=== PATIENT | female | born 1930 | race Caucasian/White ===

== ENCOUNTER 2019-08-24 14:19 | Inpatient (IN) | payer MEDICARE, BC ==
[2019-08-24] MEDS ORDERED: SODIUM CHLORIDE 0.9% 500 ML 500 ML IV STA (15:46)
--- NOTE | 2019-08-24 15:50 | ED ---
General Adult HPI - General Chief complaint: Weakness Stated complaint: right arm weakness/SOB Time Seen by Provider: 08/24/19 15:30 Source: patient, RN notes reviewed, old records reviewed Mode of arrival: ambulatory Limitations: altered mental status, physical limitation - History of Present Illness Initial comments: This is an 89-year-old female who is brought to the emergency department because she's not moving the right side. Cranial shortness of bathroom at about 5:30 and he thinks she was using her right side then but when he woke her up later she was not moving the right arm at all. She was able to ambulate she had no facial droop patient normally does not speak because of her severe dementia but they did not notice anything else different other than she does not move her right arm. There is no history of any trauma. Patient gives no history whatsoever because of her dementia. Family states he also feels so she's breathing a little more rapidly than normal. Patient has had no fevers been no vomiting or diarrhea. - Related Data Home Medications Medication Instructions Recorded Confirmed Apixaban [Eliquis] 2.5 mg PO DAILY 08/24/19 08/24/19 Cholecalciferol (Vitamin D3) 2,000 unit PO DAILY 08/24/19 08/24/19 [Vitamin D3] Enalapril [Vasotec] 10 mg PO BID 08/24/19 08/24/19 Metoprolol Tartrate [Lopressor] 25 mg PO HS 08/24/19 08/24/19 Metoprolol Tartrate [Lopressor] 50 mg PO QAM 08/24/19 08/24/19 Pravastatin Sodium [Pravachol] 20 mg PO HS 08/24/19 08/24/19 amLODIPine [Norvasc] 5 mg PO DAILY 08/24/19 08/24/19 Allergies Allergy/AdvReac Type Severity Reaction Status Date / Time No Known Allergies Allergy Verified 08/24/19 15:51 Review of Systems ROS Statement: Those systems with pertinent positive or pertinent negative responses have been documented in the HPI. ROS Other: All systems not noted in ROS Statement are negative. Past Medical History Past Medical History: Dementia, Hypertension History of Any Multi-Drug Resistant Organisms: None Reported Past Surgical History: Cholecystectomy, Hysterectomy, Orthopedic Surgery Additional Past Surgical History / Comment(s): hip Past Psychological History: No Psychological Hx Reported Smoking Status: Never smoker Past Alcohol Use History: None Reported Past Drug Use History: None Reported General Exam - General Exam Comments Initial Comments: GENERAL: Patient is well-developed and well-nourished. Patient is nontoxic and well- hydrated and is in no acute distress. ENT: Neck is soft and supple. No significant lymphadenopathy is noted. Oropharynx is clear. Moist mucous membranes. Neck has full range of motion without eliciting any pain. EYES: The sclera were anicteric and conjunctiva were pink and moist. Extraocular movements were intact and pupils were equal round and reactive to light. Eyelids were unremarkable. PULMONARY: Unlabored respirations. Good breath sounds bilaterally. No audible rales rh onchi or wheezing was noted. Patient is tachypneic CARDIOVASCULAR: Patient is tachycardic at about 110 beats a minute ABDOMEN: Soft and nontender with normal bowel sounds. No palpable organomegaly was noted. There is no palpable pulsatile mass. SKIN: Skin is clear with no lesions or rashes and otherwise unremarkable. NEUROLOGIC: Patient is alert and oriented 0. Chemistry states this is her baseline Cranial nerves II through XII are grossly intact. Motor and sensory are also intact. Patient has no facial droop but she does not speak normally so she was not answering my questions so I could not ascertain whether she had any slurred speech. MUSCULOSKELETAL: Normal extremities with adequate strength and full range of motion. No lower extremity swelling or edema. No calf tenderness. LYMPHATICS: No significant lymphadenopathy is noted PSYCHIATRIC: Unable to evaluate Limitations: altered mental status, physical limitation Course Vital Signs 08/24/19 14:44 Temperature 98.2 F Pulse Rate 116 H Respiratory 24 Rate Blood Pressure 134/67 O2 Sat by Pulse 98 Oximetry Medical Decision Making - Medical Decision Making EKG shows sinus tachycardia at 116 bpm AR interval 290 QRS is 80 QT interval 306 QTC is 425. Patient's EKG shows no ST segment elevation or depression or T wave abnormalities are noted. Chest x-ray shows a possible right lower lobe pneumonia. Computed tomography scan was done because an elevated d-dimer. It showed a thoracic a sending aortic aneurysm with dissection. They did not mention on the CAT scan any pneumonia. I spoke with the the daughter and granddaughter about the thoracic dissection and all 3 were in agreement that they wanted no intervention for the dissection. I talked with Dr. de oliveira agreed to admit the patient admitted the patient wrote admitting orders. - Lab Data Result diagrams: 08/24/19 15:30 08/24/19 15:30 Lab Results 08/24/19 08/24/19 08/24/19 Range/Units 15:30 15:30 15:30 WBC 9.5 (3.8-10.6) k/uL RBC 4.91 (3.80-5.40) m/uL Hgb 15.0 (11.4-16.0) gm/dL Hct 45.2 (34.0-46.0) % MCV 92.2 (80.0-100.0) fL MCH 30.6 (25.0-35.0) pg MCHC 33.2 (31.0-37.0) g/dL RDW 13.1 (11.5-15.5) % Plt Count 215 (150-450) k/uL Neutrophils % 86 % Lymphocytes % 9 % Monocytes % 4 % Eosinophils % 0 % Basophils % 1 % Neutrophils # 8.1 H (1.3-7.7) k/uL Lymphocytes # 0.8 L (1.0-4.8) k/uL Monocytes # 0.4 (0-1.0) k/uL Eosinophils # 0.0 (0-0.7) k/uL Basophils # 0.1 (0-0.2) k/uL PT 11.2 (9.0-12.0) sec INR 1.1 (<1.2) APTT 26.3 (22.0-30.0) sec D-Dimer 1.07 H (<0.60) mg/L FEU Sodium 134 L (137-145) mmol/L Potassium 6.0 H (3.5-5.1) mmol/L Chloride 101 (98-107) mmol/L Carbon Dioxide 21 L (22-30) mmol/L Anion Gap 12 mmol/L BUN 18 H (7-17) mg/dL Creatinine 0.58 (0.52-1.04) mg/dL Est GFR (CKD-EPI)AfAm >90 (>60 ml/min/1.73 sqM) Est GFR (CKD-EPI)NonAf 83 (>60 ml/min/1.73 sqM) Glucose 191 H (74-99) mg/dL Plasma Lactic Acid Willy (0.7-2.0) mmol/L Calcium 9.4 (8.4-10.2) mg/dL Total Bilirubin 1.3 (0.2-1.3) mg/dL AST 68 H (14-36) U/L ALT 27 (9-52) U/L Alkaline Phosphatase 69 (38-126) U/L Troponin I (0.000-0.034) ng/mL Total Protein 7.8 (6.3-8.2) g/dL Albumin 4.1 (3.5-5.0) g/dL 08/24/19 08/24/19 Range/Units 15:30 15:30 WBC (3.8-10.6) k/uL RBC (3.80-5.40) m/uL Hgb (11.4-16.0) gm/dL Hct (34.0-46.0) % MCV (80.0-100.0) fL MCH (25.0-35.0) pg MCHC (31.0-37.0) g/dL RDW (11.5-15.5) % Plt Count (150-450) k/uL Neutrophils % % Lymphocytes % % Monocytes % % Eosinophils % % Basophils % % Neutrophils # (1.3-7.7) k/uL Lymphocytes # (1.0-4.8) k/uL Monocytes # (0-1.0) k/uL Eosinophils # (0-0.7) k/uL Basophils # (0-0.2) k/uL PT (9.0-12.0) sec INR (<1.2) APTT (22.0-30.0) sec D-Dimer (<0.60) mg/L FEU Sodium (137-145) mmol/L Potassium (3.5-5.1) mmol/L Chloride (98-107) mmol/L Carbon Dioxide (22-30) mmol/L Anion Gap mmol/L BUN (7-17) mg/dL Creatinine (0.52-1.04) mg/dL Est GFR (CKD-EPI)AfAm (>60 ml/min/1.73 sqM) Est GFR (CKD-EPI)NonAf (>60 ml/min/1.73 sqM) Glucose (74-99) mg/dL Plasma Lactic Acid Willy 3.3 H* (0.7-2.0) mmol/L Calcium (8.4-10.2) mg/dL Total Bilirubin (0.2-1.3) mg/dL AST (14-36) U/L ALT (9-52) U/L Alkaline Phosphatase (38-126) U/L Troponin I <0.012 (0.000-0.034) ng/mL Total Protein (6.3-8.2) g/dL Albumin (3.5-5.0) g/dL Disposition Clinical Impression: Aortic dissection, CVA (cerebral vascular accident), Hyperkalemia, Dehydration, Pneumonia Disposition: ADMITTED IP TO THIS HOSP Referrals: Bev Calabrese MD [Primary Care Provider] - 1-2 days Time of Disposition: 18:26
[2019-08-24 16:00] LABS: Basophils # (A) 0.1 k/uL (0-0.2); Basophils % (A) 1 %; Eosinophils % (A) 0 %; HCT 45.2 % (34.0-46.0); Lymphocytes # (A) 0.8 k/uL (1.0-4.8); Lymphocytes % (A) 9 %; MCH 30.6 pg (25.0-35.0); MCHC 33.2 g/dL (31.0-37.0); MCV 92.2 fL (80.0-100.0); Mean Platelet Volume 6.8; Monocytes # (A) 0.4 k/uL (0-1.0); Monocytes % (A) 4 %; Neutrophils # (A) 8.1 k/uL (1.3-7.7); Neutrophils % (A) 86 %; Platelet Count 215 k/uL (150-450); RBC 4.91 m/uL (3.80-5.40); RDW 13.1 % (11.5-15.5); WBC 9.5 k/uL (3.8-10.6)
[2019-08-24 16:09] LABS: ALT 27 U/L (9-52); AST 68 U/L (14-36); African American GFR (CKD) >90 (>60 ml/min/1.73 sqM); Albumin 4.1 g/dL (3.5-5.0); Alkaline Phosphatase 69 U/L (38-126); Anion Gap 12 mmol/L; Blood Urea Nitrogen 18 mg/dL (7-17); Calcium 9.4 mg/dL (8.4-10.2); Carbon Dioxide 21 mmol/L (22-30); Chloride 101 mmol/L (98-107); Glucose 191 mg/dL (74-99); Sodium 134 mmol/L (137-145); Total Bilirubin 1.3 mg/dL (0.2-1.3); Total Protein 7.8 g/dL (6.3-8.2)
[2019-08-24 16:24] LABS: INR 1.1 (<1.2); Partial Thromboplastin Time 26.3 sec (22.0-30.0); Prothrombin Time 11.2 sec (9.0-12.0)
[2019-08-24 16:25] LABS: D-Dimer 1.07 mg/L FEU (<0.60)
--- NOTE | 2019-08-24 16:26 | CT ---
EXAMINATION TYPE: CT brain wo con for TPA DATE OF EXAM: 08/24/2019 COMPARISON: None HISTORY: Right arm weakness. CT DLP: 1129.[address] of the brain was performed. The ventricles, basal cisterns and sulci overlying the cerebral convexities demonstrate moderate enla rgement. There is no evidence for intracranial hemorrhage or sulcal effacement. There is decreased attenuation about the periventricular white matter and deep white matter of both c erebral hemispheres, compatible with chronic small vessel ischemia. Differential diagnosis does inclu de demyelination. No mass effects are seen.No midline shift. Osseous calvarium is intact. If symptoms persist consider MRI. IMPRESSION: 1. Age related atrophic and chronic small vessel ischemic change without acute intracranial process s een at this time.
--- NOTE | 2019-08-24 16:56 | XR ---
EXAMINATION TYPE: XR chest 2V DATE OF EXAM: 08/24/2019 COMPARISON: 09/28/2013 HISTORY: Shortness of breath TECHNIQUE: Frontal and lateral views of the chest are obtained. FINDINGS: Scattered senescent parenchymal changes noted. Hyperinflation compatible with COPD. Patchy infiltrate right lower lobe with small effusion noted. Heart size is stable. Mediastinal structures are stable and grossly unremarkable. No evidence for hilar prominence. Degenerative changes dorsal spine. IMPRESSION: 1. Patchy infiltrate right lower lobe with small effusion noted. Hyperinflation and COPD.
--- NOTE | 2019-08-24 16:58 | XR ---
EXAMINATION TYPE: XR humerus RT DATE OF EXAM: 08/24/2019 CLINICAL HISTORY: pain COMPARISON: NONE TECHNIQUE: Frontal and lateral images of the right humerus are obtained. FINDINGS: There is no acute fracture/dislocation evident. The joint spaces appear within normal limi ts. The overlying soft tissue appears unremarkable. IMPRESSION: There is no acute fracture or dislocation.ICD 10 NO FRACTURE, INITIAL EVALUATION
[2019-08-24] MEDS ORDERED: cefTRIAXone IN SWFI 1,000 MG/10 ML SYRINGE IVP STA (17:01)
[2019-08-24] MEDS ORDERED: SODIUM CHLORIDE 0.9% 1,000 ML IV ONE ×2 (17:01→18:27)
[2019-08-24] MEDS ORDERED: SODIUM CHLORIDE 0.9% 500 ML 500 ML IV ONE (17:01)
[2019-08-24] MEDS ORDERED: DEXTROSE 50% SYRINGE 50 ML IVP STA (17:02)
[2019-08-24] MEDS ORDERED: SODIUM BICARB 8.4% 50 ML SYR (1 MEQ/ML) IV STA (17:02)
[2019-08-24] MEDS ORDERED: CALCIUM CHLORIDE 100 MG/ML 10 ML SYRINGE IVP STA (17:02)
[2019-08-24] MEDS ORDERED: INSULIN REGULAR 100 UNIT/ML VIAL IV ONE (17:02)
[2019-08-24] MEDS ORDERED: SODIUM POLYSTYRENE SULFONATE 15 GM/60 ML BOTTLE PO STA (17:03)
--- NOTE | 2019-08-24 17:49 | CT ---
CT CHEST FOR PULMONARY EMBOLISM. EXAMINATION TYPE: CT chest angio for PE DATE OF EXAM: 08/24/2019 INDICATION: SOB CT DLP: 224 mGycm, Automated exposure control for dose reduction was used. CONTRAST: Patient injected with 80 mL of Isovue 370. COMPARISON: None TECHNIQUE: CT of the chest is performed on a spiral scan at 2 mm thick sections. Study is performed with intravenous contrast timed for evaluation for pulmonary embolism. This will limit additional po rtions of the evaluation. 3-D MIP images reconstructed by the technologist are reviewed on the compu ter in the coronal and sagittal planes. FINDINGS: No persistent filling defects are evident to suggest an acute pulmonary embolism. There is a dissection that begins at the aortic root and extends to the mid ascending thoracic aorta. The ascending thoracic aorta is aneurysmal in this continues into the proximal innominate artery and left carotid artery. The common carotid arteries are tortuous. There is some aneurysmal dilatation of the posterior aortic arch with a transverse dimension of 3.9 cm. The descending thoracic aorta taper s to the diaphragm. The ascending aorta diameter at the level of the main pulmonary artery is 5.2 cm. The main pulmonary artery diameter at the bifurcation is 2.2 cm. No suspicious mediastinal adenopathy is evident. There is a small right and minimal left pleural effusion. Some compressive atelectasis is adjacent to the right pleural effusion. Limited CT section through the upper abdomen are unremarkable. IMPRESSIONS: 1. No acute pulmonary embolism. 2. Ascending thoracic aortic aneurysm. There is also aneurysmal dilatation of the posterior aortic ar ch and proximal descending aorta. 3. Ascending thoracic aortic dissection beginning at the aortic root and terminating within the mid l ateral ascending aorta. 4. Report was called to Dr. Arnold by Dr. Oates by telephone [id number] hours 08/24/2019
[2019-08-24] MEDS ORDERED: MORPHINE SULFATE 2 MG/ML SYRINGE IVP STA (18:04)
[2019-08-24] MEDS ORDERED: AZITHROMYCIN 500 MG TAB PO STA (18:32)
[2019-08-24] MEDS ORDERED: AZITHROMYCIN 500 MG in SODIUM CHLORIDE 0.9% 250 ML IVPB STA (18:32)
[2019-08-24 19:26] LABS: Appearance,Urine Cloudy (Clear); Bilirubin,Urine Negative (Negative); Blood,Urine Small (Negative); Color,Urine Light Yellow; Glucose,Urine (UA) 3+ (Negative); Ketones,Urine Negative (Negative); Leukocyte Esterase,Urine Large (Negative); Mucus,Urine Rare /hpf; Nitrite,Urine Negative (Negative); Protein,Urine Negative (Negative); RBC,Urine 31 /hpf (0-5); Specific Gravity,Urine 1.025 (1.001-1.035); Urobilinogen,Urine <2.0 mg/dL (<2.0)
[2019-08-24 21:13] LABS: Glucose,Whole Blood 128 mg/dL (75-99)
[2019-08-25 05:07] LABS: African American GFR (CKD) >90 (>60 ml/min/1.73 sqM); Anion Gap 4 mmol/L; Blood Urea Nitrogen 15 mg/dL (7-17); Calcium 8.7 mg/dL (8.4-10.2); Carbon Dioxide 28 mmol/L (22-30); Chloride 105 mmol/L (98-107); Glucose 96 mg/dL (74-99); Potassium 3.3 mmol/L (3.5-5.1); Sodium 137 mmol/L (137-145)
[2019-08-25 10:53] VITALS: BMI 18.8
--- NOTE | 2019-08-25 19:29 | P.HPIM ---
History of Present Illness H&P Date: 08/25/19 Chief Complaint: Not moving right arm History of presenting complaint: This is a 89-year-old patient of Dr. Loren Calabrese. Patient lives with her . Daughter lives very close by. Patient has very advanced dementia. Does not speak. Able to walk. Able to feed herself. Patient had gone to the bathroom around late afternoon yesterday. After that the found that the right arm was not moving. It was weak. Patient is brought down to the ER. Computed tomography scan of the brain was unremarkable. Patient had a computed tomography scan of the chest in the ER that showed dissection of the ascending aorta. Dr. Arnold the ER physicians. 2 patient's daughter and granddaughter and her . They wanted no further evaluation except keep the patient comf ortable. Patient admitted to the telemetry ICU as overflow. Patient has started moving her right arm. Appears otherwise comfortable. Patient ate about 25% for breakfast this morning. Laying in bed. Comfortable. In the ER patient is also found to be hyperkalemic and was given his medications for the same. Potassium Down. Also Found to Have UTI Which Is Put on IV Ceftriaxone Admitting review of systems cannot be done as patient nonverbal. Supportive history from the family the bedside and the hospital staff. Past medical history to include: Atrial fibrillation, dementia, hypertension Social history: Lives at home with her . No smoking or alcohol. Ambulatory. Can feed herself. Doesn't really follow commands. Family history: Patient unable to state Physical examination: VITAL SIGNS: 98.2, 116, 24, 134/67, 98% room air GENERAL: BMI 18.9, laying in bed, very comfortable. EYES: Pupils equal. Conjunctiva normal. HEENT: External appearance of nose and ears normal, oral cavity grossly normal. NECK: JVD not raised; masses not palpable. HEART: First and second heart sounds are normal; no edema. LUNGS: Respiratory rate normal; clear to auscultation. ABDOMEN: Soft, nontender, liver spleen not palpable, no masses palpable. PSYCH: Patient nonverbal, unable to assessl. NEUROLOGICAL: [Cranial nerves grossly intact; no facial asymmetry, moving all 4 limbs LYMPHATICS: No lymph nodes palpable in the axilla and neck INVESTIGATIONS, reviewed in the clinical context: White count 9.5 hemoglobin 15 platelets 215 potassium 6.18 creatinine 0.58 Lactic acid 3.3, 3.3 Computed tomography scan the brain-age related atrophic changes with chronic small vessel ischemic changes Assessment: -Acute ascending aorta dissection. Patient's family does not want any further intervention. Patient's no code. 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 -Lactic acidosis type II, not from sepsis Plan: -Patient initially admitted to ICU. For close monitoring. Per patient's family no icterus of intervention. Wanted to be kept a close eye on. Patient started to be fed. Blood pressures running low. We'll hold off antihypertensives. UTIs being treated with IV ceftriaxone. We'll give Lovenox for DVT prophylaxis. Slight patient eventually returned home where she has good support. - Past Medical History Past Medical History: Atrial Fibrillation, Dementia, Hypertension History of Any Multi-Drug Resistant Organisms: None Reported Past Surgical History: Appendectomy, Cholecystectomy, Hysterectomy, Orthopedic Surgery Additional Past Surgical History / Comment(s): hip replacement sep 2013 Past Psychological History: No Psychological Hx Reported Smoking Status: Never smoker Past Alcohol Use History: None Reported Past Drug Use History: None Reported Medications and Allergies Home Medications Medication Instructions Recorded Confirmed Type Apixaban [Eliquis] 2.5 mg PO DAILY 08/24/19 08/24/19 History Cholecalciferol (Vitamin D3) 2,000 unit PO DAILY 08/24/19 08/24/19 History [Vitamin D3] Enalapril [Vasotec] 10 mg PO BID 08/24/19 08/24/19 History Metoprolol Tartrate [Lopressor] 25 mg PO HS 08/24/19 08/24/19 History Metoprolol Tartrate [Lopressor] 50 mg PO QAM 08/24/19 08/24/19 History Pravastatin Sodium [Pravachol] 20 mg PO HS 08/24/19 08/24/19 History amLODIPine [Norvasc] 5 mg PO DAILY 08/24/19 08/24/19 History Allergies Allergy/AdvReac Type Severity Reaction Status Date / Time No Known Allergies Allergy Verified 08/24/19 15:51 Physical Exam Vitals: Vital Signs Temp Pulse Resp BP Pulse Ox 08/25/19 09:00 95 95 08/25/19 08:00 97.7 F 73 12 119/65 94 L 08/25/19 07:00 60 12 96 08/25/19 06:00 63 22 95 08/25/19 05:00 59 L 16 93 L 08/25/19 04:00 98.5 F 66 16 96/55 97 08/25/19 00:00 97.9 F 80 16 111/43 98 08/24/19 20:54 97.8 F 93 20 96 08/24/19 20:30 98.2 F 78 24 122/77 98 08/24/19 20:00 82 16 127/88 98 08/24/19 19:30 85 23 108/72 95 08/24/19 19:00 81 23 110/61 98 08/24/19 18:30 79 23 141/90 98 08/24/19 18:00 81 22 113/85 98 08/24/19 17:30 82 23 119/78 98 08/24/19 17:00 79 23 118/78 98 08/24/19 16:30 78 24 115/82 98 08/24/19 16:15 81 24 116/80 98 08/24/19 16:00 82 24 121/87 96 08/24/19 15:45 82 24 121/86 98 08/24/19 15:30 84 22 120/89 98 08/24/19 15:15 82 24 119/87 98 08/24/19 15:00 86 23 118/82 98 08/24/19 14:44 98.2 F 116 H 24 134/67 98 Intake and Output 08/24/19 08/25/19 08/25/19 22:59 06:59 14:59 Other: # Voids 0 1 Weight 43.8 kg 43.8 kg Results CBC & Chem 7: 08/24/19 15:30 08/25/19 04:41 Labs: Abnormal Lab Results - Last 24 Hours (Table) 08/24/19 08/24/19 08/24/19 Range/Units 15:30 15:30 15:30 Neutrophils # 8.1 H (1.3-7.7) k/uL Lymphocytes # 0.8 L (1.0-4.8) k/uL D-Dimer 1.07 H (<0.60) mg/L FEU Sodium 134 L (137-145) mmol/L Potassium 6.0 H (3.5-5.1) mmol/L Carbon Dioxide 21 L (22-30) mmol/L BUN 18 H (7-17) mg/dL Glucose 191 H (74-99) mg/dL POC Glucose (mg/dL) (75-99) mg/dL Plasma Lactic Acid Willy (0.7-2.0) mmol/L AST 68 H (14-36) U/L Urine Appearance (Clear) Urine Glucose (UA) (Negative) Urine Blood (Negative) Ur Leukocyte Esterase (Negative) Urine RBC (0-5) /hpf Urine WBC (0-5) /hpf Urine WBC Clumps (None) /hpf Urine Mucus (None) /hpf 08/24/19 08/24/19 08/24/19 Range/Units 15:30 19:11 19:41 Neutrophils # (1.3-7.7) k/uL Lymphocytes # (1.0-4.8) k/uL D-Dimer (<0.60) mg/L FEU Sodium (137-145) mmol/L Potassium (3.5-5.1) mmol/L Carbon Dioxide (22-30) mmol/L BUN (7-17) mg/dL Glucose (74-99) mg/dL POC Glucose (mg/dL) (75-99) mg/dL Plasma Lactic Acid Willy 3.3 H* 3.3 H* (0.7-2.0) mmol/L AST (14-36) U/L Urine Appearance Cloudy H (Clear) Urine Glucose (UA) 3+ H (Negative) Urine Blood Small H (Negative) Ur Leukocyte Esterase Large H (Negative) Urine RBC 31 H (0-5) /hpf Urine WBC >182 H (0-5) /hpf Urine WBC Clumps Few H (None) /hpf Urine Mucus Rare H (None) /hpf 08/24/19 08/24/19 08/25/19 Range/Units 21:02 23:51 04:41 Neutrophils # (1.3-7.7) k/uL Lymphocytes # (1.0-4.8) k/uL D-Dimer (<0.60) mg/L FEU Sodium (137-145) mmol/L Potassium 3.3 L 3.3 L (3.5-5.1) mmol/L Carbon Dioxide (22-30) mmol/L BUN (7-17) mg/dL Glucose (74-99) mg/dL POC Glucose (mg/dL) 128 H (75-99) mg/dL Plasma Lactic Acid Willy (0.7-2.0) mmol/L AST (14-36) U/L Urine Appearance (Clear) Urine Glucose (UA) (Negative) Urine Blood (Negative) Ur Leukocyte Esterase (Negative) Urine RBC (0-5) /hpf Urine WBC (0-5) /hpf Urine WBC Clumps (None) /hpf Urine Mucus (None) /hpf Microbiology - Last 24 Hours (Table) 08/24/19 19:11 Urine Culture - Preliminary Urine,Voided Thrombosis Risk Factor Assmnt - Choose All That Apply Any of the Below Risk Factors Present?: No Other Risk Factors: Yes Each Risk Factor Represents 2 Points: Age 61-74 years Other congenital or acquired thrombophilia - If yes, enter type in comment: No Thrombosis Risk Factor Assessment Total Risk Factor Score: 2 Thrombosis Risk Factor Assessment Level: Low Risk
[2019-08-25] MEDS: PRAVASTATIN SODIUM 20 MG TAB PO SCH ×2 (20:44→20:50)
[2019-08-25] MEDS: APIXABAN 2.5 MG TABLET PO SCH ×2 (20:44→20:49)
--- NOTE | 2019-08-25 20:51 | P.CNNES ---
History of Present Illness Consult date: 08/25/19 Reason for Consult: Concern for stroke Chief complaint: RUE weakness and SOB History of Present Illness: HISTORY OF PRESENT ILLNESS: Thank you for allowing me to evaluate Ms. Adia Lucia. Ms. 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 and granddaughter at bedside. Daughter would be able to provide additional information. Patient with significant dementia, family decided on no surgery for the thoracic aneurysm. Patient denies any pain at the time of eval, no headache. PAST MEDICAL HISTORY: Dementia, HTN PAST SURGICAL HISTORY: Cholecystectomy, hysterectomy, hip surgyer HOME MEDICATIONS: Metoprolol, eliquis, Amlodipine, Pravastatin, Enalapril, Vitamin D ALLERGIES: NKDA SOCIAL HISTORY: Never smoker. REVIEW OF SYSTEMS: The 14 systems are reviewed and no additional points are identified compared to the review of systems documented history and physical PHYSICAL EXAMINATION: VITAL SIGNS: T 98.5 HR 66 RR 16 BP 96/55 O2 sat 97% on RA GEN.: NAD, granddaughter states patient only says "yes" all the time. HEENT: NCAT, sclera without icterus NECK: Supple SKIN AND EXTREMITIES: Warm to touch, no edema NEURO: MENTAL STATUS: Patient alert but says "yes" to all questions. CRANIAL NERVES II THROUGH XII: II: Pupils are equal and reactive to light symmetrically. Blinks to threat bilaterally. III, IV, : No ptosis. Tracks appropriately VII. No clear facial asymmetry. XII: Tongue midline without fasc iculation or atrophy. MOTOR: Normal bulk/tone. No pronator drift or tremor. Moves all 4 extremities spontaneously against gravity, possibly weaker R arm than L arm SENSORY: Grimaces to noxious stimuli in all 4 extremities REFLEXES: 2+ throughout. Toes are downgoing. COORDINATION/GAIT: Deferred DIAGNOSTIC TESTING: LABORATORY: WBC 9.5 Hgb 15.0 Platelet 215 PT 11.2 INR 1.1 Na 134 K 6.0 Cl 101 CO2 21 BUN 18 Cr 0.58 Glucose 191 Lactic acid 3.3 AST 68 ALT 27 AlkPhos 69 uninalysis large leukesterase, neg nitrite, >182 WBCs IMAGING: CT Head w/o contrast 08/24/19: Age-related atrophic and chronic small vessel ischemic change without acute intracranial process seen at this time. 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 Patient had an episode of complete RUE limpness, which has since resolved. Need to discuss with daughter to find out why patient is on Eliquis, but discussed with and granddaughter at bedside that we could further pursue stroke work-up with MRI brain w/o contrast, vessel imaging and TTE, but the work-up would not change control coordinator as patient already on anticoagulation. Will check labs: TSH, A1C, FLP. Will touch base with daughter tomorrow about family's decision. Neurology will continue to follow. Past Medical History Past Medical History: Atrial Fibrillation, Dementia, Hypertension History of Any Multi-Drug Resistant Organisms: None Reported Past Surgical History: Appendectomy, Cholecystectomy, Hysterectomy, Orthopedic Surgery Additional Past Surgical History / Comment(s): hip replacement sep 2013 Past Psychological History: No Psychological Hx Reported Smoking Status: Never smoker Past Alcohol Use History: None Reported Past Drug Use History: None Reported Medications and Allergies Home Medications Medication Instructions Recorded Confirmed Type Apixaban [Eliquis] 2.5 mg PO DAILY 08/24/19 08/24/19 History Cholecalciferol (Vitamin D3) 2,000 unit PO DAILY 08/24/19 08/24/19 History [Vitamin D3] Enalapril [Vasotec] 10 mg PO BID 08/24/19 08/24/19 History Metoprolol Tartrate [Lopressor] 25 mg PO HS 08/24/19 08/24/19 History Metoprolol Tartrate [Lopressor] 50 mg PO QAM 08/24/19 08/24/19 History Pravastatin Sodium [Pravachol] 20 mg PO HS 08/24/19 08/24/19 History amLODIPine [Norvasc] 5 mg PO DAILY 08/24/19 08/24/19 History Allergies Allergy/AdvReac Type Severity Reaction Status Date / Time No Known Allergies Allergy Verified 08/24/19 15:51 Physical Examination - Vital Signs Vital Signs: Vital Signs Temp Pulse Resp BP Pulse Ox 08/25/19 04:00 98.5 F 66 16 96/55 97 08/25/19 00:00 97.9 F 80 16 111/43 98 08/24/19 20:54 97.8 F 93 20 96 08/24/19 20:30 98.2 F 78 24 122/77 98 08/24/19 20:00 82 16 127/88 98 08/24/19 19:30 85 23 108/72 95 08/24/19 19:00 81 23 110/61 98 08/24/19 18:30 79 23 141/90 98 08/24/19 18:00 81 22 113/85 98 08/24/19 17:30 82 23 119/78 98 08/24/19 17:00 79 23 118/78 98 08/24/19 16:30 78 24 115/82 98 08/24/19 16:15 81 24 116/80 98 08/24/19 16:00 82 24 121/87 96 08/24/19 15:45 82 24 121/86 98 08/24/19 15:30 84 22 120/89 98 08/24/19 15:15 82 24 119/87 98 08/24/19 15:00 86 23 118/82 98 08/24/19 14:44 98.2 F 116 H 24 134/67 98 Intake and Output 08/24/19 08/25/19 08/25/19 22:59 06:59 14:59 Other: # Voids 0 1 Weight 43.8 kg Results - Laboratory Findings CBC and BMP: 08/24/19 15:30 08/25/19 04:41 Abnormal Lab Findings: Abnormal Labs 08/24/19 08/24/19 08/24/19 15:30 15:30 15:30 Neutrophils # 8.1 H Lymphocytes # 0.8 L D-Dimer 1.07 H Sodium 134 L Potassium 6.0 H Carbon Dioxide 21 L BUN 18 H Glucose 191 H POC Glucose (mg/dL) Plasma Lactic Acid Willy AST 68 H Urine Appearance Urine Glucose (UA) Urine Blood Ur Leukocyte Esterase Urine RBC Urine WBC Urine WBC Clumps Urine Mucus 08/24/19 08/24/19 08/24/19 15:30 19:11 19:41 Neutrophils # Lymphocytes # D-Dimer Sodium Potassium Carbon Dioxide BUN Glucose POC Glucose (mg/dL) Plasma Lactic Acid Willy 3.3 H* 3.3 H* AST Urine Appearance Cloudy H Urine Glucose (UA) 3+ H Urine Blood Small H Ur Leukocyte Esterase Large H Urine RBC 31 H Urine WBC >182 H Urine WBC Clumps Few H Urine Mucus Rare H 08/24/19 08/24/19 08/25/19 21:02 23:51 04:41 Neutrophils # Lymphocytes # D-Dimer Sodium Potassium 3.3 L 3.3 L Carbon Dioxide BUN Glucose POC Glucose (mg/dL) 128 H Plasma Lactic Acid Willy AST Urine Appearance Urine Glucose (UA) Urine Blood Ur Leukocyte Esterase Urine RBC Urine WBC Urine WBC Clumps Urine Mucus
[2019-08-25] MEDS ORDERED: LISINOPRIL 20 MG TAB PO SCH (21:00)
[2019-08-25] MEDS ORDERED: METOPROLOL TARTRATE 25 MG TAB PO SCH (21:00)
[2019-08-26 08:30] LABS: African American GFR (CKD) >90 (>60 ml/min/1.73 sqM); Anion Gap 9 mmol/L; Blood Urea Nitrogen 8 mg/dL (7-17); Calcium 8.1 mg/dL (8.4-10.2); Carbon Dioxide 24 mmol/L (22-30); Chloride 103 mmol/L (98-107); Glucose 100 mg/dL (74-99); Sodium 136 mmol/L (137-145)
[2019-08-26 08:35] LABS: Potassium 2.7 mmol/L (3.5-5.1)
[2019-08-26] MEDS ORDERED: METOPROLOL TARTRATE 50 MG TAB PO SCH (09:00)
[2019-08-26] MEDS ORDERED: amLODIPine 5 MG TAB PO SCH (09:00)
[2019-08-26] MEDS ORDERED: CHOLECALCIFEROL 1,000 UNIT TAB PO SCH (09:00)
[2019-08-26 10:24] VITALS: BP 154/74; PULSE 140; RESP 20; TEMP 97.8
--- NOTE | 2019-08-26 11:41 | P.PN ---
Progress Note - Text Progress Note Date: 08/26/19 SUBJECTIVE/INTERVAL EVENTS: No acute overnight events. Patient doing well although patient not wanting take her medications. Patient's huband, granddaughter at bedside along with daughter over the phone. Decision made to place patient on hospice. PHYSICAL EXAMINATION: VITAL SIGNS: T 97.8 HR 140 RR 20 BP 154/74 O2 sat 94% on RA GEN.: NAD, granddaughter states patient only says "yes" all the time. HEENT: NCAT, sclera without icterus NECK: Supple SKIN AND EXTREMITIES: Warm to touch, no edema NEURO: MENTAL STATUS: Patient alert but says "yes" to all questions. CRANIAL NERVES II THROUGH XII: II: Pupils are equal and reactive to light symmetrically. Blinks to threat bilaterally. III, IV, : No ptosis. Tracks appropriately VII. No clear facial asymmetry. XII: Tongue midline without fasciculation or atrophy. MOTOR: Normal bulk/tone. No pronator drift or tremor. Moves all 4 extremities spontaneously against gravity, possibly weaker R arm than L arm SENSORY: Grimaces to noxious stimuli in all 4 extremities REFLEXES: 2+ throughout. Toes are downgoing. COORDINATION/GAIT: Deferred DIAGNOSTIC TESTING: LABORATORY: WBC 9.5 Hgb 15.0 Platelet 215 PT 11.2 INR 1.1 Na 134 K 6.0 Cl 101 CO2 21 BUN 18 Cr 0.58 Glucose 191 Lactic acid 3.3 AST 68 ALT 27 AlkPhos 69 uninalysis large leukesterase, neg nitrite, >182 WBCs TSH 3.490 Total cholesterol 144 LDL 84 HDL 47 TG 65 IMAGING: CT Head w/o contrast 08/24/19: Age-related atrophic and chronic small vessel ischemic change without acute intracranial process seen at this time. 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 Patient had an episode of complete RUE limpness, which has since resolved. Need to discuss with daughter to find out why patient is on Eliquis, but discussed with and granddaughter at bedside that we could further pursue stroke work-up with MRI brain w/o contrast, vessel imaging and TTE, but the work-up would not professor of sport management as patient already on anticoagulation. Patient's family will soon decide on placing patient on home hospice. Neurology will sign off at this time. Neurology is not available over the weekend in-house. However, feel free to [employer] message me over the weekend if you have any questions or concerns
--- NOTE | 2019-08-26 13:29 | CDI ---
Documentation Clarification Form Date: 08/26/2019 1:10:13 PM From: Marija Gonzalez RN, CCDS Admit Date: 08/24/2019 6:27:00 PM Patient Name: Adia Bain Visit Number: [id number] Discharge Date: ATTENTION: The Clinical Documentation Specialists (CDI) and [facility] Coding Staff appreciate your assistance in clarifying documentation. Please respond to the clarification below the line at the bottom and electronically sign. The CDI & [facility] Coding staff will review the response and follow-up if needed. Please note: Queries are made part of the Legal Health Record. If you have any questions, please contact the author of this message via ITS. Dr. Tato Royal Atrial Fibrillation is documented in the past medical history and in your history and physical and further clarification is needed. History/Risk Factors: Atrial Fibrillation, Dementia, Hypertension Clinical Indicators: 89-year-old female, found that the right arm was not moving and presented to ED for evaluation. She has a past medical history of atrial fibrillation on current treatment with Eliquis daily per home medication list. EKG/telemetry: Sinus tachycardia Nonspecific ST and T wave abnormality. rate 116 beats per minute. Treatment: Eliquis po daily In your professional opinion, can you please clarify the type of Atrial Fibrillation, if known? Chronic/Permanent Paroxysmal Persistent Other, please specify Unable to determine (Last Revision: January 2018) Paroxysmal atrial fibrillation MTDD
[2019-08-26] MEDS: APIXABAN 2.5 MG TABLET PO SCH (14:28)
[2019-08-26 15:02] LABS: Hemoglobin A1C 5.6 % (4.0-6.0)
--- NOTE | 2019-08-26 18:04 | P.DS ---
Providers Date of admission: 08/24/19 18:27 Expected date of discharge: 08/26/19 Attending physician: Tato Royal Consults: 08/24/19 18:27 Consult Physician Urgent Consulting Provider: Yareli Merritt Consult Reason/Comments: CVA Do you want consulting provider notified?: Yes Primary care physician: Bev Calabrese Hospital Course: Chief Complaint: Not moving right arm Hospital course: This is a 89-year-old patient of Dr. Loren Calabrese. Patient lives with her . Daughter lives very close by. Patient has very advanced dementia. Does not speak. Able to walk. Able to feed herself. Patient had gone to the bathroom around late afternoon yesterday. After that the found that the right arm was not moving. It was weak. Patient is brought down to the ER. Computed tomography scan of the brain was unremarkable. Patient had a computed tomography scan of the chest in the ER that showed dissection of the ascending aorta. Dr. Arnold the ER physicians. 2 patient's daughter and granddaughter and her . They wanted no further evaluation except keep the patient comfortable. Patient admitted to the telemetry ICU as overflow. Patient has started moving her right arm. Appears otherwise comfortable. Patient ate about 25% for breakfast this morning. Laying in bed. Comfortable. In the ER patient is also found to be hyperkalemic and was given his medications for the same. Potassium Down. Also Found to Have UTI Which Is Put on IV Ceftriaxone Patient family also recommend conservative. Patient during the hospital stay sometimes taking medications sometimes spitting it out. With the patient's and son-in-law and daughter. Want to take the patient home with hospice. Consultation: Dr. Merritt from neurology Physical examination: VITAL SIGNS: 97.8, 140, 20, 1 5474, 94% room air GENERAL: Laying in bed, awake. EYES: Pupils equal. Conjunctiva normal. HEENT: External appearance of nose and ears normal, oral cavity grossly normal. NECK: JVD not raised; masses not palpable. HEART: First and second heart sounds are normal; no edema. LUNGS: Respiratory rate normal; clear to auscultation. ABDOMEN: Soft, nontender, liver spleen not palpable, no masses palpable. PSYCH: Patient nonverbal, unable to assess NEUROLOGICAL: [Cranial nerves grossly intact; no facial asymmetry, moving all 4 limbs INVESTIGATIONS, reviewed in the clinical context: White count 9.5 hemoglobin 15 platelets 215 potassium 6.18 creatinine 0.58 Lactic acid 3.3, 3.3 Computed tomography scan the brain-age related atrophic changes with chronic small vessel ischemic changes Assessment: -Acute ascending aorta dissection. Patient's family does not want any further intervention. Patient's no code. 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 -Lactic acidosis type II, not from sepsis Disposition: Home - Advanced care planning: The patient's son-in-law and granddaughter. Explained patient overall guarded poor prognosis. They understand that given patient's age prognosis is not good. Does understand that patient not taking medications. Any further testing will be out of any further benefit. Also spoke to patient's daughter over the phone. Patient is agreeable to proceed with patient going home and starting hospice. [facility]. No further testing will be done.Patient is no code. Will be going home with hospice. Total time spent was 25 minutes for her advanced care planning. Patient Condition at Discharge: Poor Plan - Discharge Summary New Discharge Prescriptions: New Cefuroxime Axetil [Ceftin] 500 mg PO BID 3 Days #6 tab Continue Apixaban [Eliquis] 2.5 mg PO DAILY Pravastatin Sodium [Pravachol] 20 mg PO HS Enalapril [Vasotec] 10 mg PO BID Changed Metoprolol Tartrate [Lopressor] 50 mg PO BID #0 Discontinued Metoprolol Tartrate [Lopressor] 25 mg PO HS amLODIPine [Norvasc] 5 mg PO DAILY Cholecalciferol (Vitamin D3) [Vitamin D3] 2,000 unit PO DAILY Discharge Medication List Apixaban [Eliquis] 2.5 mg PO DAILY 08/24/19 [History] Enalapril [Vasotec] 10 mg PO BID 08/24/19 [History] Pravastatin Sodium [Pravachol] 20 mg PO HS 08/24/19 [History] Cefuroxime Axetil [Ceftin] 500 mg PO BID 3 Days #6 tab 08/26/19 [Rx] Metoprolol Tartrate [Lopressor] 50 mg PO BID #0 08/26/19 [Rx] Follow up Appointment(s)/Referral(s): Bev Calabrese MD [Primary Care Provider] - As Needed [facility], [NON-STAFF] - 1-2 Days Patient Instructions/Handouts: Urinary Tract Infection in Women (DC), Hospice Care (GEN) Activity/Diet/Wound Care/Special Instructions: home with hospice Discharge Disposition: HOME WITH HOSPICE
== END 2019-08-26 15:40 | disposition hospice, home (50) | DRG 300 ==
LOC: EC 14:19 → 2SICU 18:27 → 3SCARD 08-25 17:32
PROVIDERS: ADMIT Hospitalist; ATTEND Hospitalist
DX: I71.01 Dissection of thoracic aorta (principal); E87.2 Acidosis; Z66 Do not resuscitate; Z51.5 Encounter for palliative care; E87.5 Hyperkalemia; E86.0 Dehydration; I48.0 Paroxysmal atrial fibrillation; G30.1 Alzheimer's disease with late onset; F02.80 Dementia in other diseases classified elsewhere, unspecified severity, without behavioral disturbance, psychotic disturbance, mood disturbance, and anxiety; N30.90 Cystitis, unspecified without hematuria; I10 Essential (primary) hypertension; R40.2142 Coma scale, eyes open, spontaneous, at arrival to emergency department; R40.2352 Coma scale, best motor response, localizes pain, at arrival to emergency department; R40.2242 Coma scale, best verbal response, confused conversation, at arrival to emergency department; Z79.01 Long term (current) use of anticoagulants; Z79.899 Other long term (current) drug therapy; Z90.49 Acquired absence of other specified parts of digestive tract; Z90.710 Acquired absence of both cervix and uterus; Z96.649 Presence of unspecified artificial hip joint
CPT/HCPCS: 36415; 70450; 71046; 71275; 80048; 80053; 80061; 81001; 83036; 83605; 84132; 84443; 84484; 85025; 85379; 85610; 85730; 87040; 87077; 87086; 87186; 93005; 96361; 96374; 96375; 99285